=== PATIENT | female | born 1985 | race Hispanic/Latino ===

== ENCOUNTER 2021-02-10 07:42 | Day surgery (SDC) | payer OTHER ==
[2021-02-10] MEDS ORDERED: SCOPOLAMINE HYDROBROMIDE PATCH TD ONE ×2 (08:25→08:44)
[2021-02-10] MEDS ORDERED: CEFAZOLIN/NS 1gm 1 GM/50 ML BAG ONE (08:36)
[2021-02-10] MEDS ORDERED: Ringers Lactate 1,000 ML IV ONE ×4 (08:36→15:26)
[2021-02-10] MEDS ORDERED: Mastisol Adhesive Liq ONE (08:39)
[2021-02-10] MEDS ORDERED: CEFAZOLIN SODIUM 1 GM/VIAL ONE ×2 (08:39→13:55)
[2021-02-10] MEDS ORDERED: NS 0.9% VIAL 30 ML ONE (08:39)
[2021-02-10] MEDS ORDERED: GENTAMICIN SULF 80 MG/2ML INJ ONE (08:39)
[2021-02-10] MEDS ORDERED: LIDOCAINE 1% W/EPI 1:100,000 MDV 20 ML VIAL ONE (08:39)
[2021-02-10] MEDS ORDERED: propofoL 200 MG/20 ML VIAL IV ONE (10:43)
[2021-02-10] MEDS ORDERED: FENTANYL CITR 250 MCG/5 ML ONE (10:43)
[2021-02-10] MEDS ORDERED: dexAMETHasone 10 MG/ML VIAL ONE (10:43)
[2021-02-10] MEDS ORDERED: ONDANSETRON 4 MG/2 ML VIAL ONE (10:43)
[2021-02-10] MEDS ORDERED: KETOROLAC 30 MG/ML INJ ONE (10:43)
[2021-02-10] MEDS ORDERED: NS 0.9% VIAL 10 ML ONE ×3 (10:43→13:55)
[2021-02-10] MEDS ORDERED: LIDOCAINE 2% MPF 5 ML VIAL ONE (10:43)
[2021-02-10] MEDS ORDERED: MIDAZOLAM HCL 2 MG/2 ML INJ ONE (10:43)
[2021-02-10] MEDS ORDERED: ROCURONIUM 50 MG/5 ML VIAL IV ONE (10:43)
[2021-02-10] MEDS ORDERED: MORPHINE 10 MG/ML VIAL ONE (13:24)
[2021-02-10] MEDS ORDERED: PROMETHAZINE INJ 25 MG/ML AMP ONE (14:30)
[2021-02-10 15:36] VITALS: O2SAT 98
[2021-02-10 15:47] VITALS: BP 133/89; TEMP 98
[2021-02-10] MEDS ORDERED: HYDROCODONE/APAP 7.5/325 MG TAB ONE (16:32)
--- NOTE | 2021-02-11 01:03 | OP ---
Surgeon: Deonte Colbert MD Preop Diagnosis: Breast descent. Postop Diagnosis: Breast descent. Procedure Performed: Breast lift. Anesthesia: General. Description Of Procedure: After satisfactory general anesthesia, the chest was prepped with DuraPrep , dry sterile drapes applied in the usual manner. 4-5 template was used to outline the right and lef t areolas. Then, transverse curvilinear incisions were made. Intervening skin was de-epithelialized with dermabrader or with tenotomy scissors. The right breast was approached first. A transverse in cision was deepened with electrocautery and scalpel. Flaps were elevated toward the sternum, clavicl e and anterior axillary line. Then, inferior incisions made with electrocautery for hemostasis and e xcess breast tissue laterally was reimpacted. Conization was performed with 2-0 PDS suture. Straps were elevated at 12 o'clock, 1:30 and 3 o'clock position in the right breast, and then the straps wer e woven in and out the pectoralis muscle back to base of the cone back to pectoralis muscle back to b ase of cone, tied themselves with 2-0 PDS sutures then for the 12 o'clock and 1:30 straps. The 3 o'c lock strap was sewn with sternum at the 3 o'clock position with 2-0 Ethibond. Wound stapled shut. L eft side done in identical manner. The op site with large amorphous tissue removed. Then, returned to the right side. Dog ears were marked out laterally and excised. The florentino were removed. The w ound was irrigated with antibiotic solution, a 10 CLOVER was brought out the axilla and then the wound wa s closed with 3-0 Vicryl subcu, #3 PDS running subcuticular. Left side done in identical manner. We then returned the patient supine. The patient was then sat up. Site for new nipple-areolar complex was marked out. The tissue was cored out and nipple-areolar complex sewn with interrupted #4 PDS fo llowed by #4 PDS running subcuticular. Dressings of tincture of benzoin, Steri-Strips, followed by E smarch, fluffs, and Alejo wrap. The patient tolerated the procedure well. The amount removed from the right breast was 160, and left breast 276. GH/MODL Voice ID: [id number] Report ID: [id number]
== END 2021-02-10 17:00 | disposition home or self-care (01) ==
LOC: OR 07:42
PROVIDERS: ATTEND Specialist
PROC: 0HSV0ZZ Reposition Bilateral Breast, Open Approach (ICD-10-PCS; principal; 2021-02-10 09:00)
DX: N64.81 Ptosis of breast (principal)
CPT/HCPCS: 88305; 19316; J2704; J2550; J1580; J2250; J3010; J1100; J0690 ×3; J7120 ×4; J2405